=== PATIENT | female | born 1965 | race African-American/Black ===

== ENCOUNTER 2016-06-12 19:08 | Emergency (ER) | payer BC, OTHER ==
[~2016-06-12] VITALS: Ht 170.2 cm; Wt 70.3 kg
[2016-06-12 19:31] LABS: BASO % 0 % (0-3); EOS % 0 % (0-3); HEMATOCRIT 40.5 % (36.0-47.0); HEMOGLOBIN 12.7 g/dL (12.0-15.5); LYMPH # 2.2 x10^3/uL (1.0-4.8); LYMPH % 27 % (24-48); MEAN CORPUSCULAR HEMOGLOBIN 23 pg (25-35); MEAN CORPUSCULAR HGB CONC 31 g/dL (31-37); MEAN CORPUSCULAR VOLUME 74 fL (79-100); MONO % 7 % (0-9); NEUT % 65 % (31-73); PLATELET COUNT 310 x10^3/uL (140-400); RED CELL DISTRIBUTION WIDTH 15.7 % (11.5-14.5)
[2016-06-12 19:42] LABS: CALCIUM 9.3 mg/dL (8.5-10.1); CREATININE 0.8 mg/dL (0.6-1.0); GFR 91.1; POTASSIUM 4.3 mmol/L (3.5-5.1)
[2016-06-12] MEDS ORDERED: ASPIRIN 81 MG TAB.CHEW PO ONE (19:45)
[2016-06-12 19:47] LABS: ALBUMIN 3.9 g/dL (3.4-5.0); DIRECT BILIRUBIN 0.1 mg/dL (0.0-0.2); TOTAL BILIRUBIN 0.5 mg/dL (0.2-1.0); TOTAL PROTEIN 7.4 g/dL (6.4-8.2)
[2016-06-12 20:15] VITALS: BP 127/71
[2016-06-12 20:18] LABS: OBC FLU VALID
[2016-06-12] MEDS ORDERED: OSEL75CA PO (20:24)
[2016-06-12] MEDS ORDERED: IBUP200T77 PO (20:24)
--- NOTE | 2016-06-12 20:25 | PHYS DOC ---
Past Medical History Past Medical History: No Pertinent History Past Surgical History: Hysterectomy Additional Past Surgical Histo: partial Additional Information: 0.5 PPD Alcohol Use: Occasionally Drug Use: None Adult General Chief Complaint Chief Complaint: cough and fever HPI HPI 50-year-old female presenting to the emergency department today with cough fever chest pain nausea with one episode of nonbilious nonbloody vomiting. She has been having high fevers at home. She has been taking ibuprofen which is brought down her fever. She denies any recent influenza exposure. She describes her chest pain is sharp with deep breaths moderate nonradiating and fairly alleviated with ibuprofen. Review of systems is negative for abdominal pain. Positive for fevers and myalgias. All other review of systems is negative unless otherwise noted in history of present illness. Review of Systems Review of Systems SEE ABOVE. Current Medications Current Medications Current Medications Medications (Trade) Dose Ordered Sig/Letty Start Time Stop Time Status Last Admin Dose Admin Aspirin (Children'S Aspirin) 324 mg 1X ONCE 06/12/16 19:45 06/12/16 19:46 DC 06/12/16 19:31 324 MG Allergies Allergies Allergies Coded Allergies Type Severity Reaction Last Updated Verified Penicillins Allergy Intermediate hives 11/30/14 Yes iohexol Allergy Intermediate hives 11/30/14 Yes Physical Exam Physical Exam Constitutional: Well developed, well nourished, no acute distress, non-toxic appearance. HENT: Normocephalic, atraumatic, bilateral external ears normal, oropharynx moist, no oral exudates, nose normal. [] Eyes: PERRLA, EOMI, conjunctiva normal, no discharge. Neck: Normal range of motion, no tenderness, supple, no stridor. [] Cardiovascular:Heart rate regular rhythm, no murmur Lungs & Thorax: Bilateral breath sounds clear to auscultation. No wheezing or crackles. Abdomen: Bowel sounds normal, soft, no tenderness, no masses, no pulsatile masses. Skin: Warm, dry, no erythema, no rash. [] Back: No tenderness, no CVA tenderness. Extremities: No tenderness, no cyanosis, no clubbing, ROM intact, no edema. [] Neurologic: Alert and oriented X 3, normal motor function, normal sensory function, no focal deficits noted. Psychologic: Affect normal, judgement normal, mood normal. Current Patient Data Vital Signs Vital Signs Date Time Temp Pulse Resp B/P Pulse Ox O2 Delivery O2 Flow Rate FiO2 06/12/16 19:13 101.0 116 26 165/93 95 Room Air 101.0 Lab Values Laboratory Tests Test 06/12/16 19:20 White Blood Count 8.0x10^3/uL (4.0-11.0) Red Blood Count 5.50x10^6/uL (3.50-5.40) H Hemoglobin 12.7g/dL (12.0-15.5) Hematocrit 40.5% (36.0-47.0) Mean Corpuscular Volume 74fL (79-100) L Mean Corpuscular Hemoglobin 23pg (25-35) L Mean Corpuscular Hemoglobin Concent 31g/dL (31-37) Red Cell Distribution Width 15.7% (11.5-14.5) H Platelet Count 310x10^3/uL (140-400) Neutrophils (%) (Auto) 65% (31-73) Lymphocytes (%) (Auto) 27% (24-48) Monocytes (%) (Auto) 7% (0-9) Eosinophils (%) (Auto) 0% (0-3) Basophils (%) (Auto) 0% (0-3) Neutrophils # (Auto) 5.2x10^3uL (1.8-7.7) Lymphocytes # (Auto) 2.2x10^3/uL (1.0-4.8) Monocytes # (Auto) 0.6x10^3/uL (0.0-1.1) Eosinophils # (Auto) 0.0x10^3/uL (0.0-0.7) Basophils # (Auto) 0.0x10^3/uL (0.0-0.2) Sodium Level 145mmol/L (136-145) Potassium Level 4.3mmol/L (3.5-5.1) Chloride Level 106mmol/L (98-107) Carbon Dioxide Level 26mmol/L (21-32) Anion Gap 13 (6-14) Blood Urea Nitrogen 14mg/dL (7-20) Creatinine 0.8mg/dL (0.6-1.0) Estimated GFR (Cockcroft-Gault) 91.1 Glucose Level 89mg/dL (70-99) Calcium Level 9.3mg/dL (8.5-10.1) Total Bilirubin 0.5mg/dL (0.2-1.0) Direct Bilirubin 0.1mg/dL (0.0-0.2) Aspartate Amino Transferase (AST) 47U/L (15-37) H Alanine Aminotransferase (ALT) 50U/L (14-59) Alkaline Phosphatase 118U/L (46-116) H Troponin I Quantitative < 0.017ng/mL (0.000-0.055) TH-Euz-J-Type Natriuretic Peptide 44pg/mL (0-124) Total Protein 7.4g/dL (6.4-8.2) Albumin 3.9g/dL (3.4-5.0) Lipase 91U/L (73-393) Laboratory Tests 06/12/16 19:20 Laboratory Tests 06/12/16 19:20 EKG EKG [] Radiology/Procedures Radiology/Procedures [] Course & Med Decision Making Course & Med Decision Making Pertinent Labs and Imaging studies reviewed. (See chart for details) [] 50-year-old female presenting to the emergency department today with influenza-like symptoms. Patient was febrile and mildly tachycardic in the emergency department. Satting well on room air. For rate was recorded at 26 however during my clinical examination the patient was respiring less than 20 breast per minute. Otherwise she was nontoxic appearing. Influenza swab sent. EKG performed which showed sinus tachycardia. Chest x-ray reviewed which showed no obvious pneumothorax. Radio opacification more consistent with viral pattern. No focal infiltrate present. Otherwise CBC unremarkable. Chemistry panel unremarkable. Troponin negative. Fluent the testing positive. The patient was in discharged home with ibuprofen and Tamiflu to follow-up with primary care physician in 4-5 days if her symptoms did not improve. Dragon Disclaimer Dragon Disclaimer This electronic medical record was generated, in whole or in part, using a voice recognition dictation system. Departure Departure Impression: Primary Impression: Influenza Disposition: HOME, SELF-CARE Condition: STABLE Referrals: NO PCP (PCP) INGRID CLAIRE MD Patient Instructions: Influenza, Adult Additional Instructions: Thank you for allowing us to participate in your care today. Followup with your primary care physician in 3 days if your symptoms do not improve. If you do not have a primary care provider you can ask for a list of our primary care providers. Return to the emergency department you have any new or concerning findings. This should be evaluated by the primary care physician and any necessary consulting services for continued management within a few days after discharge. Return to emergency room if you have any new or concerning symptoms including but not limited to fever, chills, nausea, vomiting, intractable pain, any new rashes, chest pain, shortness of air, uncontrolled bleeding, difficulty breathing, and/or vision loss. Scripts Oseltamivir Phosphate (Tamiflu)75 Mg [id number] Mg PO BID FLU #10 TAB Prov:FERNANDA MALDONADO MD 06/12/16 Ibuprofen 200 Mg [id number] Mg PO PRN Q6HRS PRN INFLAMMATION #30 TAB Prov:FERNANDA MALDONADO MD 06/12/16 FERNANDA MALDONADO MD Jun 12, 2016 20:25
[2016-06-12] MEDS ORDERED: OSELTAMIVIR 75 MG CAPSULE PO ONE (21:00)
--- NOTE | 2016-06-13 06:28 | EKG ---
[facility] [address] [place] [address] Test Date: 2016-06-12 Test Time: 19:15:45 Pat Name: YOUSIF JAY Department: Room: Gender: F Cad Technician: : 1965 Requested By: FERNANDA MALDONADO Order Number: [id number] Reading MD: Germán Fairchild Measurements Intervals [place] Rate: 122 P: -115 SD: 112 QRS: -28 QRSD: 78 T: 68 QT: 354 QTc: 506 Interpretive Statements SINUS TACHYCARDIA LEFTWARD AXIX NONSPECIFIC ST-T WAVE CHANGES. RI6.01 Unconfirmed report Electronically Signed On 06-13-2016 14:15:15 RISK COMPLIANCE ANALYST by Germán Fairchild
--- NOTE | 2016-06-13 07:43 | RAD ---
EXAM: Chest one view. HISTORY: Chest pain, cough. COMPARISON: 09/08/2012. FINDINGS: A frontal view of the chest is obtained. There are no confluent infiltrates. There is no pneumothorax or pleural effusion. The heart is not enlarged. There are calcified granulomas in the right base and right hilum. IMPRESSION: 1. No confluent infiltrates.
== END 2016-06-12 20:45 | disposition home or self-care (01) ==
LOC: ER 19:08
DX: J11.1 Influenza due to unidentified influenza virus with other respiratory manifestations (principal); R00.0 Tachycardia, unspecified; F17.210 Nicotine dependence, cigarettes, uncomplicated; Z88.0 Allergy status to penicillin; Z91.041 Radiographic dye allergy status
CPT/HCPCS: 36415; 71010; 80048; 80076; 83690; 83880; 84484; 85027; 87804; 93005; 99285-25

== ENCOUNTER 2017-07-05 13:21 | Inpatient (IN) | payer BC ==
[2017-07-05 13:44] LABS: BASO % 1 % (0-3); EOS % 1 % (0-3); HEMATOCRIT 42.8 % (36.0-47.0); HEMOGLOBIN 13.4 g/dL (12.0-15.5); LYMPH # 4.5 x10^3/uL (1.0-4.8); LYMPH % 57 % (24-48); MEAN CORPUSCULAR HEMOGLOBIN 23 pg (25-35); MEAN CORPUSCULAR HGB CONC 31 g/dL (31-37); MEAN CORPUSCULAR VOLUME 73 fL (79-100); MONO # 0.5 x10^3/uL (0.0-1.1); MONO % 7 % (0-9); NEUT # 2.8 x10^3uL (1.8-7.7); NEUT % 36 % (31-73); PLATELET COUNT 347 x10^3/uL (140-400); RED BLOOD COUNT 5.85 x10^6/uL (3.50-5.40); RED CELL DISTRIBUTION WIDTH 16.2 % (11.5-14.5); WHITE BLOOD COUNT 7.8 x10^3/uL (4.0-11.0)
[2017-07-05 13:46] LABS: ADD MAN DIFF? YES
[2017-07-05 13:54] LABS: PROTHROMBIN TIME PATIENT 12.9 SEC (11.7-14.0)
[2017-07-05 13:55] LABS: PARTIAL THROMBOPLASTIN TIME 27 SEC (24-38)
[2017-07-05 13:58] LABS: ANION GAP 10 (6-14); BLOOD UREA NITROGEN 14 mg/dL (7-20); CARBON DIOXIDE 27 mmol/L (21-32); CHLORIDE 108 mmol/L (98-107); CREATININE 0.8 mg/dL (0.6-1.0); GFR 90.8; GLUCOSE 109 mg/dL (70-99); POTASSIUM 3.6 mmol/L (3.5-5.1); SODIUM 145 mmol/L (136-145)
[2017-07-05 14:04] LABS: ALBUMIN 3.6 g/dL (3.4-5.0); ALK PHOS 114 U/L (46-116); ALT (SGPT) 36 U/L (14-59); AST (SGOT) 24 U/L (15-37); DIRECT BILIRUBIN 0.1 mg/dL (0.0-0.2); TOTAL BILIRUBIN 0.6 mg/dL (0.2-1.0); TOTAL PROTEIN 7.7 g/dL (6.4-8.2)
[2017-07-05 14:15] LABS: BILIRUBIN,URINE SMALL (NEG); CLARITY,URINE CLEAR; GLUCOSE,URINE NEGATIVE (NEG); NITRITE,URINE NEGATIVE (NEG); PROTEIN,URINE 30 mg/dL (NEG-TRACE)
[2017-07-05 14:21] LABS: FECAL OB PT POSITIVE (NEG); NEG OBC FOB NEG; POS OBC FOB POS
[2017-07-05 14:57] LABS: COLOR,URINE DK YELLOW
[2017-07-05 15:03] LABS: BACTERIA,URINE MODERATE /HPF (0-FEW); RBC,URINE 0 /HPF (0-2); SQUAMOUS EPITHELIAL CELL,UR MANY /LPF; TRICHOMONAS,URINE PRESENT
[2017-07-05 15:37] LABS: % LYMPHS 61 % (24-48); % MONOS 4 % (0-10); % SEGS 35 % (35-66)
[2017-07-05 15:39] LABS: HYPOCHROMIA MOD; MICROCYTOSIS MOD; PLT ESTIMATE ADEQUATE (ADEQUATE)
[2017-07-05] MEDS: MORPHINE SULFATE 4 MG/ML DISP.SYRIN. IV ×2 (16:40→19:48)
[2017-07-05] MEDS: ONDANSETRON PF 4 MG/2 ML VIAL. IV (16:47)
[2017-07-05 17:26] LABS: % SAT IRON 29 % (15-34); IRON,SERUM 102 ug/dL (50-170)
[2017-07-05] MEDS: PANTOPRAZOLE 40 MG TABLET.DR. PO (18:11)
[2017-07-05] MEDS: POLYETHYLENE GLYCOL 3350 238 GM POWDER PO (18:12)
[2017-07-05 19:11] LABS: TROPONINI < 0.017 ng/mL (0.000-0.055)
[2017-07-05 21:32] LABS: TROPONINI < 0.017 ng/mL (0.000-0.055)
[2017-07-06] MEDS: MORPHINE SULFATE 4 MG/ML DISP.SYRIN. IV (05:42)
[2017-07-06] MEDS: ONDANSETRON PF 4 MG/2 ML VIAL. IV (05:42)
[2017-07-06] MEDS: PANTOPRAZOLE 40 MG TABLET.DR. PO (07:30)
[2017-07-06 08:31] LABS: ADD MAN DIFF? NO
[2017-07-06 08:47] LABS: BASO % 0 % (0-3); EOS # 0.1 x10^3/uL (0.0-0.7); EOS % 1 % (0-3); HEMATOCRIT 40.5 % (36.0-47.0); HEMOGLOBIN 12.6 g/dL (12.0-15.5); LYMPH # 3.3 x10^3/uL (1.0-4.8); LYMPH % 47 % (24-48); MEAN CORPUSCULAR HEMOGLOBIN 23 pg (25-35); MEAN CORPUSCULAR HGB CONC 31 g/dL (31-37); MEAN CORPUSCULAR VOLUME 74 fL (79-100); MONO # 0.5 x10^3/uL (0.0-1.1); MONO % 7 % (0-9); NEUT # 3.2 x10^3uL (1.8-7.7); NEUT % 45 % (31-73); PLATELET COUNT 318 x10^3/uL (140-400); RED BLOOD COUNT 5.45 x10^6/uL (3.50-5.40); RED CELL DISTRIBUTION WIDTH 16.4 % (11.5-14.5); WHITE BLOOD COUNT 7.1 x10^3/uL (4.0-11.0)
[2017-07-06 09:04] LABS: ANION GAP 7 (6-14); BLOOD UREA NITROGEN 12 mg/dL (7-20); CALCIUM 8.9 mg/dL (8.5-10.1); CARBON DIOXIDE 29 mmol/L (21-32); CHLORIDE 107 mmol/L (98-107); CREATININE 0.8 mg/dL (0.6-1.0); GFR 90.8; GLUCOSE 102 mg/dL (70-99); POTASSIUM 3.9 mmol/L (3.5-5.1); SODIUM 143 mmol/L (136-145)
[2017-07-06] MEDS ORDERED: LIDOCAINE 1% PF 2 ML VIAL. ID (11:15)
[2017-07-06] MEDS ORDERED: fentaNYL PF VIAL 100 MCG/2 ML VIAL IV ×2 (11:15)
[2017-07-06] MEDS ORDERED: MIDAZOLAM HCL/PF 2 MG/2 ML VIAL. IV (11:15)
[2017-07-06] MEDS: IV RINGERS,LACTATED 1000ML 1,000 ML IV (11:30)
[2017-07-06] MEDS: CIPROFLOXACIN 400MG PREMIX 200 ML IV ×2 (12:00→21:15)
[2017-07-06] MEDS ORDERED: PROPOFOL 20 ML IV ×2 (13:47→14:03)
[2017-07-06] MEDS ORDERED: ACETAMINOPHEN 325 MG TABLET. PO (17:00)
[2017-07-06] MEDS ORDERED: HYDROcodone/APAP 5/325MG 1 TAB TABLET PO (17:00)
[2017-07-06 18:52] LABS: C DIFF BY PCR Positive (Negative)
[2017-07-06] MEDS: IBUPROFEN 400 MG TABLET. PO (20:27)
[2017-07-06] MEDS: VANCOMYCIN 125 MG/2.5 ML ORAL SOLUTION. PO (21:15)
[2017-07-07] MEDS: PANTOPRAZOLE 40 MG TABLET.DR. PO (06:14)
[2017-07-07] MEDS: IBUPROFEN 400 MG TABLET. PO (06:14)
[2017-07-07] MEDS: VANCOMYCIN 125 MG/2.5 ML ORAL SOLUTION. PO (07:56)
[2017-07-07] MEDS: CIPROFLOXACIN 400MG PREMIX 200 ML IV (07:57)
[2017-07-07] MEDS ORDERED: metroNIDAZOLE 500 MG TABLET PO (14:00)
[2017-07-07] MEDS ORDERED: LACTOBACILLUS RHAMNOSUS GG 1 CAPSULE. PO (21:00)
== END 2017-07-07 15:21 | disposition home or self-care (01) | DRG 371 ==
LOC: ER 13:21 → 4 NORTH 14:40
PROC: 0DJD8ZZ Inspection of Lower Intestinal Tract, Via Natural or Artificial Opening Endoscopic (ICD-10-PCS; principal; 2017-07-06 13:57)
DX: A04.72 Enterocolitis due to Clostridium difficile, not specified as recurrent (principal); K57.93 Diverticulitis of intestine, part unspecified, without perforation or abscess with bleeding; K50.90 Crohn's disease, unspecified, without complications; N39.0 Urinary tract infection, site not specified; K64.8 Other hemorrhoids; D25.9 Leiomyoma of uterus, unspecified; F17.210 Nicotine dependence, cigarettes, uncomplicated; K21.9 Gastro-esophageal reflux disease without esophagitis; K63.5 Polyp of colon; Z80.7 Family history of other malignant neoplasms of lymphoid, hematopoietic and related tissues; Z83.3 Family history of diabetes mellitus; Z90.710 Acquired absence of both cervix and uterus; Z88.0 Allergy status to penicillin; Z88.8 Allergy status to other drugs, medicaments and biological substances; K62.89 Other specified diseases of anus and rectum
CPT/HCPCS: 36415; 74176; 80048; 80076; 81001; 82274; 83540; 83550; 84484; 85007; 85025; 85610; 85730; 86850; 86900; 86901; 87086; 87324; 93005; 99285; 99285-25; J0744; J2270; J2405; J2704; J7120

== ENCOUNTER 2018-01-11 03:49 | Emergency (ER) | payer BC ==
[~2018-01-11] VITALS: Ht 170.2 cm; Wt 77.1 kg
[~2018-01-11 03:49] MED LIST: HYDR-2758 PO; IBUP200T77 PO; METR500T PO; OSEL75CA PO; Pantoprazole PO
[2018-01-11] MEDS ORDERED: fentaNYL PF VIAL 100 MCG/2 ML VIAL ONE (04:13)
[2018-01-11] MEDS ORDERED: fentaNYL PF VIAL 100 MCG/2 ML VIAL IV ONE (04:15)
[2018-01-11] MEDS ORDERED: IV NORMAL SALINE 500ML BAG 500 ML IV ONE (04:15)
--- NOTE | 2018-01-11 04:17 | PHYS DOC ---
Past Medical History Past Medical History: No Pertinent History Past Surgical History: Hysterectomy Additional Past Surgical Histo: partial, FIBROID REMOVAL Alcohol Use: Occasionally Drug Use: None Adult General Chief Complaint Chief Complaint: HEADACHE HPI HPI Patient is a 52-year-old -[place] female who presents to the emergency department for evaluation. She states that for the past 2 months, she has been having sharp right-sided headache, which has been waxing and waning. She states that she awoke to use the restroom this morning, and had a headache on her right side that was somewhat worse than the typical headaches that she has been getting over the past few months. She states that she took some ibuprofen, but it did not improve her headache. She has not had any vision changes, numbness, or weakness. Palpation of the right temporal region seems to worsen the patient' s pain. She states that she has not had similar headaches to this in the past. She has not had any abrupt onset or "thunderclap" headaches. She states she did have a sinus infection about a year ago, and has developed some bumps" behind her LEFT ear, as well as on her left posterior scalp. These have been present for about 6 months and haven't changed. She does report some mild photophobia bilaterally when she is experiencing a headache. There are no alleviating, or exacerbating factors to the patient's symptoms, except as noted. Review of Systems Review of Systems Constitutional: Denies fever or chills [] Eyes: Denies change in visual acuity, redness, or eye pain [] HENT: Denies nasal congestion or sore throat, denies otalgia [] Respiratory: Denies cough or shortness of breath [] Cardiovascular: The patient denies any shortness of breath, chest pain, palpitations, or orthopnea [] GI: Denies abdominal pain, nausea, vomiting, bloody stools or diarrhea [] : Denies dysuria or hematuria [] Musculoskeletal: Denies back pain or joint pain [] Integument: Denies rash or skin lesions [] Neurologic: Denies focal weakness or sensory changes [] Endocrine: Denies polyuria or polydipsia [] All other systems were reviewed and found to be within normal limits, except as documented in this note. Current Medications Current Medications Current Medications Medications (Trade) Dose Ordered Sig/Letty Start Time Stop Time Status Last Admin Dose Admin Fentanyl Citrate (Fentanyl 2ml Vial) 100 mcg STK-MED ONCE 01/11/18 04:13 01/11/18 04:14 DC Prednisone (Prednisone) 60 mg 1X ONCE 01/11/18 05:00 01/11/18 05:02 DC 01/11/18 05:06 60 MG Sodium Chloride 500 ml @ 500 mls/hr 1X ONCE 01/11/18 04:15 01/11/18 05:14 DC 01/11/18 04:20 500 MLS/HR Allergies Allergies Allergies Coded Allergies Type Severity Reaction Last Updated Verified Penicillins Allergy Intermediate hives 07/06/17 Yes iohexol Allergy Intermediate hives 07/06/17 Yes Physical Exam Physical Exam PHYSICAL EXAM: CONSTITUTIONAL: Well developed, well nourished HEAD: normocephalic, atraumatic. Temporal arteries are palpable laterally. There is diffuse tenderness to palpation on the right temporal scalp, without any definite palpable mass or other focal abnormality noted. There are no skin lesions noted. EENT: PERRL, EOMI. Conjunctivae normal color, sclerae non-icteric; moist mucous membranes. The tympanic membranes are normal bilaterally. NECK: Supple, non-tender; no meningismus. LUNGS: Lungs CTA, breathing even and unlabored. Normal air movement. HEART: Regular rate and rhythm, no murmur CHEST: No deformity; non-tender ABDOMEN: The abdomen is soft, and non-tender, no masses or bruits. EXTREM: Normal ROM; no deformity, no calf tenderness. Normal pulses palpable in all extremities. There is no pedal edema. SKIN/INTEGUMENT: No rash; no diaphoresis. There is a nontender somewhat enlarged left posterior auricular lymph node, estimated to measure about 4-5 cm , as well as a similar sized occipital area soft tissue nodular structure also somewhat palpable on the left, although exam is limited because the patient has a weave, which is not able to be removed, the patient states that these have been present for 6-12 months. NEURO: Alert; normal speech and cognition; CN's grossly intact; strength grossly intact without focal deficit. BACK: No CVA TTP. Current Patient Data Vital Signs Vital Signs Date Time Temp Pulse Resp B/P (MAP) Pulse Ox O2 Delivery O2 Flow Rate FiO2 01/11/18 10:17 97 18 98 01/11/18 04:18 Room Air 01/11/18 03:59 97.6 163/84 (110) 97.6 Lab Values Laboratory Tests Test 01/11/18 04:10 White Blood Count 7.8 x10^3/uL (4.0-11.0) Red Blood Count 5.68 x10^6/uL (3.50-5.40) H Hemoglobin 13.9 g/dL (12.0-15.5) Hematocrit 43.2 % (36.0-47.0) Mean Corpuscular Volume 76 fL (79-100) L Mean Corpuscular Hemoglobin 25 pg (25-35) Mean Corpuscular Hemoglobin Concent 32 g/dL (31-37) Red Cell Distribution Width 17.1 % (11.5-14.5) H Platelet Count 337 x10^3/uL (140-400) Neutrophils (%) (Auto) 35 % (31-73) Lymphocytes (%) (Auto) 56 % (24-48) H Monocytes (%) (Auto) 7 % (0-9) Eosinophils (%) (Auto) 1 % (0-3) Basophils (%) (Auto) 1 % (0-3) Neutrophils # (Auto) 2.7 x10^3uL (1.8-7.7) Lymphocytes # (Auto) 4.4 x10^3/uL (1.0-4.8) Monocytes # (Auto) 0.5 x10^3/uL (0.0-1.1) Eosinophils # (Auto) 0.1 x10^3/uL (0.0-0.7) Basophils # (Auto) 0.0 x10^3/uL (0.0-0.2) Segmented Neutrophils % 39 % (35-66) Band Neutrophils % 1 % (0-9) Lymphocytes % 51 % (24-48) H Atypical Lymphocytes % (Manual) 1 % (0-0) H Monocytes % 8 % (0-10) Platelet Estimate Adequate (ADEQUATE) Hypochromasia Slight Anisocytosis Slight Erythrocyte Sedimentation Rate 2 (0-25) Sodium Level 144 mmol/L (136-145) Potassium Level 3.7 mmol/L (3.5-5.1) Chloride Level 105 mmol/L (98-107) Carbon Dioxide Level 27 mmol/L (21-32) Anion Gap 12 (6-14) Blood Urea Nitrogen 17 mg/dL (7-20) Creatinine 0.7 mg/dL (0.6-1.0) Estimated GFR (Cockcroft-Gault) 105.5 BUN/Creatinine Ratio 24 (6-20) H Glucose Level 111 mg/dL (70-99) H Calcium Level 8.8 mg/dL (8.5-10.1) Total Bilirubin 0.6 mg/dL (0.2-1.0) Aspartate Amino Transferase (AST) 29 U/L (15-37) Alanine Aminotransferase (ALT) 37 U/L (14-59) Alkaline Phosphatase 110 U/L (46-116) C-Reactive Protein, Quantitative 15.9 mg/L (0-3.3) H Total Protein 7.6 g/dL (6.4-8.2) Albumin 3.7 g/dL (3.4-5.0) Albumin/Globulin Ratio 0.9 (1.0-1.7) L Laboratory Tests 01/11/18 04:10 Laboratory Tests 01/11/18 04:10 EKG EKG [] Radiology/Procedures Radiology/Procedures [PROCEDURE: CT HEAD WO CONTRAST INDICATION: right sided headache COMPARISON: None. TECHNIQUE: Axial CT images obtained through the head without intravenous contrast. One or more of the following individualized dose reduction techniques were utilized for this examination: 1. Automated exposure control; 2. Adjustment of the mA and/or kV according to patient size; 3. Use of iterative reconstruction technique. FINDINGS: No intracranial hemorrhage. No midline shift. Basal cisterns patent. Ventricles and sulci are unremarkable. No acute osseous abnormality. Opacification left maxillary sinus and part of frontal sinus IMPRESSION: 1. No acute intracranial hemorrhage. 2. Opacification of left maxillary sinus. Could be from congestion or sinusitis. 3. Within the left posterior scalp there is a 30 x 10 mm subcutaneous lesion. Could be secondary to a skin associated lesion such as a sebaceous cyst but other skin lesions can have this appearance as well. Would correlate with physical exam findings within the region. 4. Small region of suspected encephalomalacia within the left temporal lobe. Would correlate for possible causes such as remote trauma or remote infarct.] Impression: 1. No definitive venous thrombosis is demonstrated allowing for noncontrast technique, smaller caliber of the left transverse venous sinus likely on a developmental basis. Electronically signed by: Jade Holland MD (01/11/2018 9:48 AM) [email or web address] DICTATED and SIGNED BY: JADE HOLLAND MD DATE: 01/11/18912 Course & Med Decision Making Course & Med Decision Making Pertinent Labs and Imaging studies reviewed. (See chart for details) [] 6:00 AM: The patient's condition remained stable. She is resting comfortably , but when awakened to reassess her she reports only mild improvement in her headache. The exact etiology of her symptoms are unclear at this time. Temporal arteritis is on the differential, although not necessarily considered highly likely. The sedimentation rate is normal, although the CRP is elevated. The patient's history of waxing and waning headaches over the past 2 months is not highly suggestive of subarachnoid hemorrhage or acute bacterial meningitis, I do not think lumbar puncture is warranted emergently at this time. Dural venous thrombosis certainly also on the differential and an MRI will be obtained. Care will be turned over to Dr. Lopez at shift change, pending final disposition. Report given. 1010 AM denoids. There is preserved marrow signal of the clivus. Impression: 1. There is no evidence of recent infarct. There is small cystic focus with adjacent T2 and FLAIR hyperintense on the left temporal lobe. This may be due to sequela of cystic encephalomalacia from previous infarct or trauma although small cystic mass is not excluded the. Post contrast imaging is recommended unless there are outside facility exams to confirm stability or known previous history of trauma or infarct. Other minimal T2 and FLAIR hyperintense signal of the supratentorial parenchyma is nonspecific, possibly due to chronic microvascular ischemic disease. 2. There is complete opacification of the left maxillary sinus with heterogeneous signal features and mild expansion, possible underlying complex mucocele. There is other paranasal sinus mucosal thickening as stated. There is nonspecific prominence of the adenoids. 3. There is cystic left suboccipital scalp lesion, may be a large cyst. 4. There is mild to moderate fluid and thickening left mastoid air cells, minimally on the right. Electronically signed by: Jade Holland MD (01/11/2018 9:35 AM) [email or web address] I really doubt this patient in detail. She's had headache for 2 months she is neurologically intact noted the MRI finding. Noted the ESR to think Arteritis is very unlikely. I spoke with Dr. CA regarding MRI findings and the patient's complaint of 2 months of headache he says that outpatient follow-up should be reasonable. Follow up with him or his colleagues. Patient was given doxycycline for the sinus findings and was advised on the importance of ENT follow-up for the sinusitis it does not improve as well as for the cystic lesion on the neck that likely will need biopsy or follow-up. Ulysses for pain. Patient was given instructions and the importance of primary care doctor follow-up for blood pressure as well as his above findings. Dragon Disclaimer Dragon Disclaimer This electronic medical record was generated, in whole or in part, using a voice recognition dictation system. Departure Departure Impression: Primary Impression: Headache Additional Impression: Elevated blood pressure reading Disposition: HOME, SELF-CARE Condition: STABLE Referrals: NO PCP (PCP) Scripts Hydrocodone/Apap 5-325 (NORCO 5-325 TABLET) 1 Each Tablet 1-2 EACH PO PRN Q6HRS PRN for PAIN, #15 as needed for pain Prov: RUDDY LOPEZ MD 01/11/18 Doxycycline Hyclate (DOXYCYCLINE HYCLATE) 100 Mg Capsule 1 CAP PO BID, #20 CAP Prov: RUDDY LOPEZ MD 01/11/18 Problem Qualifiers BRUNO LANDAVERDE MD Jan 11, 2018 04:17 RUDDY LOPEZ MD Jan 11, 2018 10:49
[2018-01-11 04:18] LABS: BASO % 1 % (0-3); EOS # 0.1 x10^3/uL (0.0-0.7); EOS % 1 % (0-3); HEMATOCRIT 43.2 % (36.0-47.0); HEMOGLOBIN 13.9 g/dL (12.0-15.5); LYMPH # 4.4 x10^3/uL (1.0-4.8); LYMPH % 56 % (24-48); MEAN CORPUSCULAR HEMOGLOBIN 25 pg (25-35); MEAN CORPUSCULAR HGB CONC 32 g/dL (31-37); MEAN CORPUSCULAR VOLUME 76 fL (79-100); MONO # 0.5 x10^3/uL (0.0-1.1); MONO % 7 % (0-9); NEUT # 2.7 x10^3uL (1.8-7.7); NEUT % 35 % (31-73); PLATELET COUNT 337 x10^3/uL (140-400); RED BLOOD COUNT 5.68 x10^6/uL (3.50-5.40); RED CELL DISTRIBUTION WIDTH 17.1 % (11.5-14.5); WHITE BLOOD COUNT 7.8 x10^3/uL (4.0-11.0)
[2018-01-11 04:41] LABS: CALCIUM 8.8 mg/dL (8.5-10.1); CREATININE 0.7 mg/dL (0.6-1.0); GFR 105.5; POTASSIUM 3.7 mmol/L (3.5-5.1)
[2018-01-11 04:47] LABS: ALBUMIN 3.7 g/dL (3.4-5.0); ALBUMIN/GLOBULIN RATIO 0.9 (1.0-1.7); C-REACTIVE PROTEIN 15.9 mg/L (0-3.3); TOTAL BILIRUBIN 0.6 mg/dL (0.2-1.0); TOTAL PROTEIN 7.6 g/dL (6.4-8.2)
[2018-01-11] MEDS ORDERED: predniSONE 20 MG TABLET PO ONE (05:00)
--- NOTE | 2018-01-11 05:15 | RAD ---
INDICATION: right sided headache COMPARISON: None. TECHNIQUE: Axial CT images obtained through the head without intravenous contrast. One or more of the following individualized dose reduction techniques were utilized for this examination: 1. Automated exposure control; 2. Adjustment of the mA and/or kV according to patient size; 3. Use of iterative reconstruction technique. FINDINGS: No intracranial hemorrhage. No midline shift. Basal cisterns patent. Ventricles and sulci are unremarkable. No acute osseous abnormality. Opacification left maxillary sinus and part of frontal sinus IMPRESSION: 1. No acute intracranial hemorrhage. 2. Opacification of left maxillary sinus. Could be from congestion or sinusitis. 3. Within the left posterior scalp there is a 30 x 10 mm subcutaneous lesion. Could be secondary to a skin associated lesion such as a sebaceous cyst but other skin lesions can have this appearance as well. Would correlate with physical exam findings within the region. 4. Small region of suspected encephalomalacia within the left temporal lobe. Would correlate for possible causes such as remote trauma or remote infarct. Electronically signed by: Ken Garcias MD (01/11/2018 5:11 AM) [id number]
[2018-01-11 09:09] LABS: % ATYL 1 % (0-0); % BANDS 1 % (0-9); % LYMPHS 51 % (24-48); % MONOS 8 % (0-10); % SEGS 39 % (35-66); HYPOCHROMIA SLIGHT; PLT ESTIMATE ADEQUATE (ADEQUATE)
[2018-01-11 09:10] LABS: ANISOCYTOSIS SLIGHT
--- NOTE | 2018-01-11 09:39 | RAD ---
MRI Brain without contrast History: Right-sided headaches for 2 week Technique: Multiplanar, multisequential noncontrast MR imaging was performed of the brain. Contrast: None Comparison: None Findings: There is mild motion. There is no evidence of recent infarct or cytotoxic edema. The ventricles, sulci, and cisterns are within normal limits in size and configuration. There is no significant midline shift, intraaxial mass effect, or focal abnormal extra-axial fluid collection. There is approximate 1.2 cm cystic focus left temporal lobe with adjacent T2 and FLAIR hyperintense signal. There is other minimal T2 and FLAIR hyperintense signal of the supratentorial white matter greatest of the periatrial and parietal white matter. There is preservation of the major intracranial flow-voids at the skull base. There are some foci of hemosiderin deposition near left occipital horn and along left lateral ventricle. The cerebellar tonsils are normal in location. There is no significant abnormality of the pineal gland or pituitary gland. There is complete opacification of the left maxillary sinus with heterogeneous signal characteristics, mild expansion also extent to the left ethmoid air cells. There is mild right ethmoid air cell mucosal thickening. There is moderate to severe frontal sinus mucosal thickening and more central opacification. There is mild to moderate fluid and thickening left mastoid air cells, minimally on the right. There is left occipital scalp lesion about 3.1 cm with internal cystic signal characteristics. There is nonspecific prominence of adenoids. There is preserved marrow signal of the clivus. Impression: 1. There is no evidence of recent infarct. There is small cystic focus with adjacent T2 and FLAIR hyperintense on the left temporal lobe. This may be due to sequela of cystic encephalomalacia from previous infarct or trauma although small cystic mass is not excluded the. Post contrast imaging is recommended unless there are outside facility exams to confirm stability or known previous history of trauma or infarct. Other minimal T2 and FLAIR hyperintense signal of the supratentorial parenchyma is nonspecific, possibly due to chronic microvascular ischemic disease. 2. There is complete opacification of the left maxillary sinus with heterogeneous signal features and mild expansion, possible underlying complex mucocele. There is other paranasal sinus mucosal thickening as stated. There is nonspecific prominence of the adenoids. 3. There is cystic left suboccipital scalp lesion, may be a large cyst. 4. There is mild to moderate fluid and thickening left mastoid air cells, minimally on the right. Electronically signed by: Artur Schroeder MD (01/11/2018 9:35 AM) [email or web address]
--- NOTE | 2018-01-11 09:52 | RAD ---
MR venography of the brain History: Right-sided headaches for 2 weeks Technique: MR venography was performed of the brain. Comparison: None Contrast: None Findings: There is visualization of the major venous sinuses, smaller caliber of the left transverse venous sinus likely on a developmental basis. No definitive filling defect is identified allowing for noncontrast technique. There is likely some flow artifact in the distal right transverse venous sinus and sigmoid sinus. Impression: 1. No definitive venous thrombosis is demonstrated allowing for noncontrast technique, smaller caliber of the left transverse venous sinus likely on a developmental basis. Electronically signed by: Artur Schroeder MD (01/11/2018 9:48 AM) [email or web address]
[2018-01-11 10:17] VITALS: BP 154/87
[2018-01-11] MEDS ORDERED: DOXY100C2 PO (10:42)
[2018-01-11] MEDS ORDERED: HYDR-971 PO (10:42)
[2018-01-11] MEDS ORDERED: HYDROcodone/APAP 5/325MG 1 TAB TABLET PO ONE (11:30)
== END 2018-01-11 10:39 | disposition home or self-care (01) ==
LOC: ER 03:49
DX: R51 Headache (principal); R03.0 Elevated blood-pressure reading, without diagnosis of hypertension; Z90.710 Acquired absence of both cervix and uterus; Z88.0 Allergy status to penicillin; Z91.041 Radiographic dye allergy status
CPT/HCPCS: 36415; 70450; 70544; 70551; 80053; 85007; 85025; 85651; 86140; 96374; 99285; J3010; J7040; J7512

== ENCOUNTER → 2018-08-28 | Outpatient (CLI) | payer BC ==
[~2018-08-28] MED LIST changes: +DOXY100C2 PO; -HYDR-2758 PO; +HYDR-2761 PO; +HYDR-3164 PO
--- NOTE | 2018-08-28 10:13 | KCIC ---
CT Abdomen and Pelvis without contrast History: Abdominal distention, dyspareunia, rectal bleeding and pelvic pain Technique: Noncontrast CT imaging was performed of the abdomen and pelvis. Multiplanar images are reviewed. Exposure: One or more of the following individualized dose reduction techniques were utilized for this examination: 1. Automated exposure control 2. Adjustment of the mA and/or kV according to patient size 3. Use of iterative reconstruction technique. Comparison: None Findings: There are some calcified nodes in the visualized right hilar region as seen previously. There is a small noncalcified right lower lobe pulmonary nodule about 0.3 cm, unchanged in size. There is again calcified right lower lobe nodule. There is no pleural fluid. Evaluation of abdominal visceral organs is limited without intravenous contrast, no new obvious focal abnormality of the liver, pancreas, spleen. Gallbladder is present without obvious intraluminal abnormality by CT. There is no hydronephrosis or renal calculus. Incidental note is made of retroaortic left renal vein. There is no adrenal nodularity. Evaluation of bowel is limited without oral contrast, no bowel dilatation, free fluid, free air. Appendix caliber is within normal limits without significant adjacent inflammatory-type change. There is moderate to severe degenerative disc disease L5-S1 with associated vacuum disc disease. There is facet degenerative change of the inferior lumbar spine. Impression: 1. No significant acute abnormality is identified on this noncontrast exam. 2. There is stable small 0.3 cm right lower lobe pulmonary nodule compared with 2018 exam. Electronically signed by: Artur Schroeder MD (08/28/2018 10:10 AM) [facility]
== END | disposition home or self-care (01) ==
LOC: KCIC CT 09:26
PROVIDERS: ATTEND Internal Medicine
DX: R91.1 Solitary pulmonary nodule (principal); M51.37 Other intervertebral disc degeneration, lumbosacral region; Z86.73 Personal history of transient ischemic attack (TIA), and cerebral infarction without residual deficits; Z90.710 Acquired absence of both cervix and uterus
CPT/HCPCS: 74176

== ENCOUNTER → 2018-09-26 | Outpatient (CLI) | payer BC ==
--- NOTE | 2018-09-27 08:42 | KCIC ---
Examination: PELVIS COMPLETE History: Pelvic pain and bloating Comparison/Correlation: 08/28/2018 CT abdomen and pelvis without contrast Findings: Transabdominal pelvic ultrasound exam was performed. Hysterectomy is noted. Ovaries are not identified. Correlate with surgical history. Ovaries may otherwise be atrophic. Vaginal cuff is unremarkable. No pelvic free fluid or mass. Impression: No suspicious process. Electronically signed by: Thom Blount MD (09/27/2018 8:39 AM) [id number]
== END | disposition home or self-care (01) ==
LOC: KCIC US 14:32
PROVIDERS: ATTEND Obstetrics & Gynecology
DX: R14.0 Abdominal distension (gaseous) (principal); R10.2 Pelvic and perineal pain; Z90.710 Acquired absence of both cervix and uterus
CPT/HCPCS: 76856

== ENCOUNTER → 2019-01-16 | Outpatient (CLI) | payer BC ==
[~2019-01-16] MED LIST changes: +ATOR80TA72 PO; +BARIUM SULFATE 60% 355 ML SUSP PO ONE; +CIPR500T94 PO; +FAMO20TA5 PO; +ONDA4TAB12 PO
[2019-01-16 09:20] VITALS: BP 157/93
--- NOTE | 2019-01-16 11:56 | RAD ---
SMALL BOWEL SERIES 01/16/2019. Reason for study: Diarrhea, melena. Comparison studies: None.. 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 Then following ingestion of oral barium, serial images of the abdomen were obtained to assess progress of contrast throughout the small bowel. Once the contrast reached the colon, fluoroscopic evaluation of the small bowel, particularly the terminal ileum, was performed. Fluoroscopy time: 0.8 minutes Number of images: 13 Findings: Transit time through the small bowel is fast with contrast identified in the large bowel at 20 minutes and at the rectum by 25 minutes. No evidence for bowel obstruction or dilatation. Jejunal and ileal fold patterns are normal with no evidence for inflammatory bowel disease. The terminal ileum was unremarkable. IMPRESSION: 1. Rapid transit of contrast through the small bowel and colon with contrast reaching the rectum and approximately 25 minutes post contrast ingestion. 2. No suspicious mucosal abnormality is visualized. Electronically signed by: Libby Smith MD (01/16/2019 11:53 AM) [facility]
== END | disposition home or self-care (01) ==
LOC: RAD 09:33
PROVIDERS: ATTEND Internal Medicine Gastroenterology
DX: K92.1 Melena (principal); R19.7 Diarrhea, unspecified
CPT/HCPCS: 74250

== ENCOUNTER → 2019-01-16 | Day surgery (SDC) | payer BC ==
[~2019-01-16] MED LIST changes: -BARIUM SULFATE 60% 355 ML SUSP PO ONE; +IV RINGERS,LACTATED 1000ML 1,000 ML IV SCH; +LIDOCAINE 2% PF 5 ML VIAL. ONE; +PROPOFOL 20 ML IV ONE
[2019-01-16 09:20] VITALS: BP 157/93
--- NOTE | 2019-01-17 15:07 | PATHOLOGY ---
[facility] Accession Number: [id number] . 01 Material submitted: . duodenum - DUODENAL BIOPSY . 01 Clinical history: . Melena, diarrhea Rule out c sprue . 02 Diagnosis: Duodenal biopsy: - No significant pathologic abnormalities. ([facility] 01/[facility]) [facility] 01/17/2019 0917 Local . 02 Comment: Sections of the duodenal biopsy reveal segments of duodenal and small intestine mucosa. Where best oriented, the mucosal villi show no sprue-like changes or significant inflammatory changes. ([facility] 01/17/2019) . 02 Electronically signed: . Jakob Goodwin MD, Pathologist NPI- [id number] . 01 Gross description: . The specimen is received in formalin, labeled "Franck, Janice, duodenal BX" and consists of multiple fragments of pink-escamilla tissue measuring 1.7 x 0.5 x 0.3 cm in aggregate which are entirely submitted in A1. (SDY; 01/16/2019) [facility] 01/16/2019 1611 Local . 02 Pathologist provided ICD-10: R19.7 . 02 CPT . 525952 Specimen Comment: A courtesy copy of this report has been sent to Specimen Comment: [phone], . Specimen Comment: Report sent to / DR HUDSON Performed at: 01 [facility] [address], [place] [id number] MD J Luis Beck MD Phone: [phone] Performed at: 02 [facility] [address] [place], [place] [id number] MD Jakob Goodwin MD Phone: [phone]
== END ==
LOC: ENDOS 07:37
PROVIDERS: ATTEND Internal Medicine Gastroenterology
DX: K92.1 Melena (principal); K29.50 Unspecified chronic gastritis without bleeding; K21.9 Gastro-esophageal reflux disease without esophagitis; F15.90 Other stimulant use, unspecified, uncomplicated; Z86.73 Personal history of transient ischemic attack (TIA), and cerebral infarction without residual deficits; Z72.89 Other problems related to lifestyle
CPT/HCPCS: 43239; 88305; J2001; J2704